=== PATIENT | female | born 1975 | race Caucasian/White ===

== ENCOUNTER 2018-11-16 08:20 | Emergency (ER) | payer OTHER ==
[~2018-11-16] VITALS: Ht 162.6 cm; Wt 81.8 kg
[~2018-11-16 08:20] MED LIST: PHEN-948 PO; SULF1TAB3 PO
[2018-11-16] MEDS ORDERED: KETOROLAC TROMETHAMINE 30 MG/ML VIAL IM ONE (10:00)
[2018-11-16] MEDS ORDERED: LIDOCAINE 5% TRANSDERMAL PATCH TD ONE (10:00)
[2018-11-16 12:36] VITALS: BP 142/77
== END 2018-11-16 12:45 | disposition home or self-care (01) ==
LOC: EMS 08:22
DX: M54.5 Low back pain (principal)
CPT/HCPCS: 96372; 99283; J1885